=== PATIENT | male | born 1980 | race Caucasian/White ===

== ENCOUNTER 2023-07-28 18:24 | Emergency (ER) | payer OTHER ==
[~2023-07-28] VITALS: Ht 167.6 cm; Wt 95.3 kg
[2023-07-28 18:38] VITALS: BP 114/60; PULSE 74; RESP 16; TEMP 98; O2SAT 98
[2023-07-28 18:40] VITALS: O2SAT 96
[2023-07-28] MEDS ORDERED: KETOROLAC 30 MG/ML VIAL IVP ONE (19:55)
== END 2023-07-28 20:14 | disposition home or self-care (01) ==
LOC: MED 18:24
DX: S01.111A Laceration without foreign body of right eyelid and periocular area, initial encounter (principal); S01.21XA Laceration without foreign body of nose, initial encounter; R56.9 Unspecified convulsions; Z79.899 Other long term (current) drug therapy; X58.XXXA Exposure to other specified factors, initial encounter; Y93.89 Activity, other specified; Y92.89 Other specified places as the place of occurrence of the external cause; Y99.8 Other external cause status
CPT/HCPCS: 12011; 96374; 99283; J1885